=== PATIENT | male | born 1960 | race African-American/Black ===

== ENCOUNTER 2016-09-11 16:58 | Emergency (ER) | payer OTHER ==
[~2016-09-11] VITALS: Ht 188 cm; Wt 124.7 kg
[~2016-09-11 16:58] MED LIST: ATORVASTATIN CA10 MG PO; BENZONATATE200 M1 PO; DIOVAN 40 MG40 MG PO; GLUCOPHAGE850 M1 PO; ROBITUSSIN W/CO10 ML PO; TESSALON PERLE100 MG PO; ZITHROMAX250 M2 PO
[2016-09-11 17:02] VITALS: BP 123/86
--- NOTE | 2016-09-11 17:44 | RADIOLOGY REPORT ---
EXAMINATION: XR FINGER, LEFT CLINICAL INFORMATION: Left 2nd digit laceration on a table saw. COMPARISON: No relevant prior studies are available for comparison. TECHNIQUE: Three views of the left 2nd digit were obtained. FINDINGS: No fracture. No osseous erosion. No abnormal soft tissue calcification. No radiopaque foreign body in the region of the reported injury. Mild soft tissue prominence at the distal 2nd phalanx. 7 mm lobulated metallic density overlying the distal 2nd and 3rd metatarsals, which could be outside the patient or represent a foreign body. IMPRESSION: 1. No fracture. Soft tissue prominence at the distal second phalanx. No radiopaque foreign body in the region of the reported injury. 2. Lobulated metallic density overlying the distal 2nd and 3rd metatarsals which could be outside of the patient or represent a foreign body.
== END 2016-09-11 19:20 | disposition admitted as inpatient to this hospital (09) ==
LOC: ERH 16:58
DX: S61.211A Laceration without foreign body of left index finger without damage to nail, initial encounter (principal); W29.8XXA Contact with other powered hand tools and household machinery, initial encounter
CPT/HCPCS: 73140-LT; 99281